=== PATIENT | female | born 1975 | race Caucasian/White ===

== ENCOUNTER 2017-03-12 10:41 | Emergency (ER) | payer OTHER ==
[~2017-03-12] VITALS: Wt 78.0 kg
[2017-03-12] MEDS ORDERED: IBUPROFEN 600 MG TAB PO ONE (11:30)
--- NOTE | 2017-03-12 12:14 | ERD ---
ER Documentation Chief Complaint Date/Time DATE: 03/12/17 TIME: 12:11 Chief Complaint left foot injury x2 days, bruising noted HPI This is a 42-year-old female presenting to emergency department for left foot pain after injury 2 days ago. Patient states she was helping her on a ladder when he slipped and fell. Patient states her fell with a ladder landing on her left foot. Patient now has left foot and ankle pain. Patient states she does have a small area of numbness to her left foot otherwise fully sensation. No laceration or bruising. No swelling. Patient did not take any medication for this. ROS All systems reviewed and are negative except as per history of present illness. Medications Home Meds Active Scripts Ibuprofen* (Motrin*) 600 Mg Tab, 600 MG PO Q6, #30 TAB Prov:CLAUDIA LAIRD NP 03/12/17 PMhx/Soc History of Surgery: No Anesthesia Reaction: No Hx Neurological Disorder: No Hx Respiratory Disorders: No Hx Cardiac Disorders: No Hx Psychiatric Problems: Yes (DEPRESSION) Hx Miscellaneous Medical Probl: No Hx Alcohol Use: No Hx Substance Use: No Hx Tobacco Use: No Smoking Status: Never smoker Physical Exam Vitals Vital Signs Date Time Temp Pulse Resp B/P Pulse Ox O2 Delivery O2 Flow Rate FiO2 03/12/17 10:46 98.2 94 18 139/81 97 Physical Exam Const: No acute distress, alert Head: Atraumatic Eyes: Normal Conjunctiva ENT: Normal External Ears, Nose and Mouth. Neck: Full range of motion..~ No meningismus. Resp: Clear to auscultation bilaterally Cardio: Regular rate and rhythm, no murmurs Abd: Soft, non tender, non distended. Normal bowel sounds Skin: No petechiae or rashes Back: No midline or flank tenderness Ext: Negative Urias test. Full mobility to left foot and ankle. Strength equal bilaterally. Able to dorsiflex and plantarflex left foot. No tenderness to palpation. Neur: Awake and alert Psych: Normal Mood and Affect Results 24 hrs Current Medications Medications (Trade) Dose Ordered Sig/Kimmy Route PRN Reason Start Time Stop Time Status Last Admin Dose Admin Ibuprofen (Motrin) 600 mg ONCE ONCE PO 03/12/17 11:30 03/12/17 11:31 DC 03/12/17 12:09 Procedures/[address], [place] [address] Radiology Main Line: [phone] DIAGNOSTIC IMAGING REPORT Patient: AINSLEY BRICE : 1975 Age: 42 Sex: F MR #: [id number] DOS: 03/12/17 1121 Ordering MD: CLAUDIA ACOSTA NP Location: [facility] Room/Bed: PROCEDURE: XR Left Ankle. CLINICAL INDICATION: left foot pain after injury TECHNIQUE: AP, oblique and lateral views of the ankle were performed. COMPARISON: None. FINDINGS: There is normal mineralization and alignment. No acute fracture is identified. The angle mortise is intact. The soft tissues are unremarkable. An inferior calcaneal spur is present. IMPRESSION: An inferior calcaneal spur is present. Otherwise, no significant abnormalities are identified. [place] [address] Radiology Main Line: [phone] DIAGNOSTIC IMAGING REPORT Patient: AINSLEY BRICE : 1975 Age: 42 Sex: F MR #: [id number] DOS: 03/12/17 1121 Ordering MD: CLAUDIA ACOSTA NP Location: [facility] Room/Bed: PROCEDURE: XR Foot. CLINICAL INDICATION: Left foot pain. TECHNIQUE: Three views of the left foot are available for review. COMPARISON: None available FINDINGS: No acute fracture or dislocation is seen. Joint spaces are intact. Bony mineralization is normal. Mild soft tissue swelling of the dorsum of the forefoot. No radiopaque foreign body is identified. Small inferior calcaneal spur. IMPRESSION: 1. No evidence of fracture or dislocation. 2. Mild soft tissue swelling over the dorsum of the forefoot. 3. Small inferior calcaneal spur. MDM: This is a 42-year-old female presenting to the emergency department for left foot in after injury 2 days ago. Patient is afebrile and vital signs are stable. Patient has full mobility to left foot and ankle. Patient has difficulty ambulating due to pain. No swelling, erythema or warmth. No laceration or ecchymosis. X-ray left foot and ankle ordered. X-rays reviewed by radiologist as an inferior calcaneal spur is present otherwise no significant abnormalities are identified. No evidence of fracture or dislocation. Mild soft tissue swelling over the dorsum of the forefoot. Low suspicion for acute dislocation or fracture. Low suspicion for Achilles tendon rupture. Patient is appropriate for outpatient management only given prescription for ibuprofen. Instructed patient to follow-up with primary care provider in the next 2-3 days for reassessment and additional management. Resources provided. Return to ED for any high fever, chest pain, difficulty breathing, shortness breath, wheezing, vomiting, diarrhea, abdominal pain or any new or worsening symptoms. Patient verbalizes understanding. All questions answered at discharge. Disclaimer: Inadvertent spelling and grammatical errors are likely due to EHR/ dictation software use and do not reflect on the overall quality of patient care. Also, please note that the electronic time recorded on this note does not necessarily reflect the actual time of the patient encounter. Departure Diagnosis: Primary Impression: Injury of foot Encounter type: initial encounter Laterality: left Qualified Code: S99.922A - Injury of left foot, initial encounter Condition: Stable CLAUDIA LAIRD NP Mar 12, 2017 12:14
--- NOTE | 2017-03-12 12:36 | RADRPT ---
PROCEDURE: XR Left Ankle. CLINICAL INDICATION: left foot pain after injury TECHNIQUE: AP, oblique and lateral views of the ankle were performed. COMPARISON: None. FINDINGS: There is normal mineralization and alignment. No acute fracture is identified. The angle mortise is intact. The soft tissues are unremarkable. An inferior calcaneal spur is present. IMPRESSION: An inferior calcaneal spur is present. Otherwise, no significant abnormalities are identified. RPTAT:AAJJ Physician Ryan Date Time Electronically viewed and signed by Physician Ryan on 03/12/2017 12:36 /
--- NOTE | 2017-03-12 12:45 | RADRPT ---
PROCEDURE: XR Foot. CLINICAL INDICATION: Left foot pain. TECHNIQUE: Three views of the left foot are available for review. COMPARISON: None available FINDINGS: No acute fracture or dislocation is seen. Joint spaces are intact. Bony mineralization is normal. Mild soft tissue swelling of the dorsum of the forefoot. No radiopaque foreign body is identified. Small inferior calcaneal spur. IMPRESSION: 1. No evidence of fracture or dislocation. 2. Mild soft tissue swelling over the dorsum of the forefoot. 3. Small inferior calcaneal spur. RPTAT: HLDM .Jono Barker MD, Date Time Electronically viewed and signed by .Jono Barker MD, on 03/12/2017 12:45 .M/
[2017-03-12] MEDS ORDERED: IBUP-1542 PO (12:52)
== END 2017-03-12 13:23 | disposition home or self-care (01) ==
LOC: FTE 10:41 → EDBD 10:41 → FTE 13:23
DX: S90.32XA Contusion of left foot, initial encounter (principal); W50.0XXA Accidental hit or strike by another person, initial encounter; Y92.9 Unspecified place or not applicable
CPT/HCPCS: 73610; 73630; Z7502; Z7610